=== PATIENT | female | born 1950 | race American Indian/Alaskan Native ===

== ENCOUNTER 2016-11-04 14:39 | Emergency (ER) | payer MEDICARE ==
[2016-11-04 15:07] VITALS: BP 158/99
--- NOTE | 2016-11-04 15:22 | Emergency Department Report ---
Chief Complaint: Syncope Stated Complaint: SYNCOPE Time Seen by Provider: 11/04/16 15:13 - HPI History of Present Illness: 66-year-old female presents today post 2 syncopal episodes since this morning. He denies head injury. Patient was seen at primary care provider and was diagnosed with left ear infection. Positive for history of anemia. Her EKG was negative. Denies fever, chills, nausea, vomiting, chest pain, shortness of breath, abdominal pain. - ROS Review of Systems: Per HPI - Exam Vital Signs: Vital Signs 11/04/16 15:03 Temperature 98.8 F Pulse Rate 88 Respiratory 20 Rate Blood Pressure 158/99 O2 Sat by Pulse 95 Oximetry Physical Exam: General: A 66-year-old female in no acute distress. Well-developed, well- nourished. CV: Regular rate and rhythm. Lungs: Clear to auscultation bilaterally. MSE screening note: Focused history and physical exam performed. Due to findings the following was ordered: ED Disposition for MSE Condition: Stable
[2016-11-04 15:34] LABS: Basophils % (Auto) 0.1 % (0.0-1.8); Eosinophils % (Auto) 0.2 % (0.0-4.3); Hemoglobin 15.3 gm/dl (10.1-14.3); Mean Corpuscular HGB Conc 33 % (30-34); Mean Corpuscular Hemoglobin 27 pg (28-32); Mean Corpuscular Volume 84 fl (79-97); Platelet Count 197 K/mm3 (140-440); Red Blood Count 5.62 M/mm3 (3.65-5.03); Red Cell Distribution Width 13.4 % (13.2-15.2); White Blood Count 13.3 K/mm3 (4.5-11.0)
[2016-11-04 16:32] LABS: Creatine Kinase MB 3.4 ng/mL (0.0-4.0)
[2016-11-04 16:33] LABS: Anion Gap 20 mmol/L; BUN/Creatinine Ratio 18.57; Blood Urea Nitrogen 13 mg/dL (7-17); Calcium 9.3 mg/dL (8.4-10.2); Carbon Dioxide 25 mmol/L (22-30); Creatine Kinase 147 units/L (30-135); Glucose 113 mg/dL (65-100); Potassium 4.7 mmol/L (3.6-5.0); Sodium 139 mmol/L (137-145)
--- NOTE | 2016-11-05 00:36 | Admit Criteria Form ---
Admission Criteria Documentation: SYNCOPE: OBSERVATION CARE USE THIS FORM ONLY WHEN INPATIENT ADMISSION CRITERIA ARE NOT MET. (Place "X" for any and all applicable criteria): Placement for observation care is indicated for a patient with ANY ONE of the following (1)(2)(3)(4)(5)(6) [ ]I. Hemodynamic instability [ ]II. Complaint of dyspnea [ ]III. Respiratory rate greater than 24 breaths/minute [ ]IV. Hypoxia (new) [ ]V. History of chronic heart failure [ ]. History of coronary artery disease [ ]VII. History of structural heart disease (eg, aortic stenosis, reduced ejection fraction, congenital heart disease, rheumatic heart disease) [ ]VIII. History of cardiac arrhythmia (eg, ventricular tachycardia or fibrillation) requiring antiarrhythmic medication (other than beta-victorina or calcium-channel victorina) or device (automatic implantable cardioverter- defibrillator, pacemaker) [ ]IX. Symptoms or signs suggesting transient ischemic attack, stroke, or focal neurologic disorder [ ]X. Patient reported palpitations or tachycardia preceding syncope. [ ]XI. Syncope occurring during exercise [ ]XII. Syncope sudden and without prodrome [ ]XIII. Syncope while supine [ ]XIV. Dangerous arrhythmia suspected as cause as indicated by ANY ONE of the following: [ ]a) History of Dangerous arrhythmia [ ]b) Use of medication known to cause Dangerous arrhythmia [ ]c) Family history of sudden [ ]d) Presentation consistent with acute coronary syndrome (eg, suspicious chest pain) [ ]e) Multiple syncopal episodes within last 6 months [ ]XV. Abnormal ECG as indicated by ANY ONE of the following: [ ]a) New pathologic changes on ECG (eg, new Q waves) [ ]b) Cardiac rhythm other than normal sinus [ ]c) Significant conduction abnormalities (eg, prolonged QT interval ) [ ]XVI. Hematocrit less than 30% (0.30) [ ]XVII. Child whose situation includes ANY ONE of the following: [ ]a) Clinical response to outpatient therapy uncertain [ ]b) Outpatient supervision by parents or caregivers uncertain [ ]c) Congenital heart disease [ X]XVIII.Other observation care needs. ( Also refer to General Criteria: Observation Care Form as appropriate) The [facility] content created by [facility] has been revised. The portions of the content which have been revised are identified through the use of italic text, and [facility] has neither reviewed nor approved the modified material. All other unmodified content is copyright [facility]. Please see references footnoted in the original [facility] edition 2015 Admission Criteria Met: Pending
--- NOTE | 2016-11-07 00:02 | ED Elopement Review ---
ED Pt Elopement review - Results review Lab results: Laboratory Tests 11/04/16 11/04/16 15:21 15:21 WBC 13.3 H RBC 5.62 H Hgb 15.3 H Hct 47.0 H MCV 84 MCH 27 L MCHC 33 RDW 13.4 Plt Count 197 Lymph % (Auto) 9.7 L Grady % (Auto) 4.0 Eos % (Auto) 0.2 Baso % (Auto) 0.1 Lymph # 1.3 Grady # 0.5 Eos # 0.0 Baso # 0.0 Seg Neutrophils % 86.0 H Seg Neutrophils # 11.4 H Sodium 139 Potassium 4.7 Chloride 99.0 Carbon Dioxide 25 Anion Gap 20 BUN 13 Creatinine 0.7 Estimated GFR > 60 BUN/Creatinine Ratio 18.57 Glucose 113 H Calcium 9.3 Total Creatine Kinase 147 H CK-MB (CK-2) 3.4 CK-MB (CK-2) Rel Index 2.3 Troponin T < 0.010 - Call Back decision Pt Call Back Decision: Call pt to return to ED SOPHIA (syncope should be further evaluated)
== END 2016-11-04 23:55 | disposition left against medical advice (07) ==
LOC: ED 14:39
DX: R55 Syncope and collapse (principal); Z86.2 Personal history of diseases of the blood and blood-forming organs and certain disorders involving the immune mechanism; Z53.21 Procedure and treatment not carried out due to patient leaving prior to being seen by health care provider
CPT/HCPCS: 36415; 80048; 82550; 82553; 84484; 85025